=== PATIENT | male | born 1950 | race Caucasian/White ===

== ENCOUNTER → 2020-09-20 | Outpatient (CLI) | payer MEDICARE | END | disposition home or self-care (01) | LOC: CFH 09:35 | PROVIDERS: ATTEND Physician Assistant Medical | DX: Z12.2 Encounter for screening for malignant neoplasm of respiratory organs (principal); M25.80 Other specified joint disorders, unspecified joint; Z87.891 Personal history of nicotine dependence | CPT/HCPCS: 71271 ==